=== PATIENT | female | born 1955 | race Caucasian/White ===

== ENCOUNTER 2019-09-12 22:36 | Emergency (ER) | payer BC, SELFPAY ==
--- NOTE | ~2019-09-12 | XR_ITS ---
EXAMINATION: XR hand RT min 3V INDICATION: Right hand pain and laceration TECHNIQUE: Three views of the right hand are obtained. COMPARISON: None available FINDINGS: There is no fracture, dislocation, or subluxation. There is mild soft tissue swelling of th e third and fourth fingers. The joint spaces are normal. IMPRESSION: 1. No acute osseous abnormality. Reviewed, dictated and finalized at location A.
--- NOTE | ~2019-09-12 | XR_ITS ---
EXAMINATION: XR hand LT min 3V INDICATION: Left hand pain and laceration TECHNIQUE: Three views of the left hand are obtained. COMPARISON: None available FINDINGS: There is swelling of the third and fourth fingers. There appear to be lacerations of the th ird finger. No fracture is identified. The joint spaces are normal. IMPRESSION: 1. No acute osseous abnormality. Reviewed, dictated and finalized at location A.
[2019-09-12 22:39] VITALS: BP 143/109; PULSE 97; RESP 18; TEMP 35.8; O2SAT 100
--- NOTE | 2019-09-12 23:00 | ED.FALL ---
HPI - Fall General Chief Complaint: Fall Stated Complaint: fall, hand lacs Time Seen by Provider: 09/12/19 23:00 Source: patient Mode of arrival: ambulatory Limitations: no limitations History of Present Illness HPI Narrative: A 63 y/o female presents to the ED after a fall. Pt states she had 2 beers this evening and was taking out the trash when she fell and scraped her fingers on the gravel. Pt's tetanus immunization is UTD. She reports smoking, but denies a HI, LOC, and drug use. Pt is not on a blood thinner. Place fall occurred: home Loss of consciousness: none Location of injury: other (fingers) Related Data Home Medications Medication Instructions Recorded Confirmed atorvastatin 20 mg tablet 20 mg PO DAILY 07/09/19 levothyroxine 75 mcg tablet 75 mcg PO DAILY 07/09/19 triamterene 37.5 1 tablet PO QAM 07/09/19 mg-hydrochlorothiazide 25 mg tablet Allergies Allergy/AdvReac Type Severity Reaction Status Date / Time propoxyphene Allergy Unknown Unknown Verified 09/12/19 22:59 Review of Systems Review of Systems: All systems reviewed & are unremarkable except as noted in HPI and below Constitutional: Comments: Reports: a fall Musculoskeletal: Comments: Reports: laceration to fingers Neurologic: Comments: Denies: HI, LOC PMFSH Past Medical History Medical History Breast cancer History of chemotherapy HLD (hyperlipidemia) Hx of radiation therapy Hypothyroid Surgical History Surgical History H/O left mastectomy Hx of removal of ovary Family History Family History Mother Patient's mother is Father Patient's father is Other Family history of hypercholesterolemia Family history of malignant neoplasm of breast Social History Social History (Updated 09/12/19 @ 23:15 by Carole Jefferson) Smoking packs per day: 0.5 Smoking cigarettes per day: 10.0 Smoking status: Current every day smoker Alcohol intake: current Substance use: never Gender identity (if verbalized by the patient): Female Comments PCP: Dr. Quijano Exam Narrative: Exam Narrative: GENERAL: Well-appearing, well-nourished, and in no acute distress. HEAD: Normocephalic, atraumatic. CHEST: Clear to auscultation. No respiratory distress. HEART: Regular rate and rhythm. Normal peripheral pulses. EXTREMITIES: Right hand with flap lacerations to digits #3 and 4. The fourth digit has a 4 cm laceration that is you sick shaped. I can see down to the bone/joint capsule. Patient maintains normal flexion extension with normal strength in the affected finger. The right third digit demonstrates a 2.5 cm laceration that goes down towards the joint capsule but it appears intact. Again flexion extension are preserved as is strength. Sensation sharp and soft is intact in the affected digits as well on the right side. The left third digit has a stellate 5 cm laceration that goes down to bone/joint capsule. All joints involved are the PIPs. The left hand has preserved flexion/extension/sharp and soft touch. Normal strength as well. No foreign body or particulate visualized in a bloodless plane in each digit. SKIN: Warm, dry, no rash. Scattered abrasions to the hands bilaterally as well as each finger. NEURO: No focal deficits. Alert and oriented x3. Course Course Emergency Course: Wound repaired. Patient had the wounds dressed with topical antibiotic. Will give hand surgery follow-up. AlumaFoam splints have been applied to keep the patient's fingers in extension while healing. Discussed return precautions and patient verbalized understanding. Vital Signs Vital signs: Vital Signs Temperature 96.4 F L 09/12/19 22:39 Pulse Rate 97 09/12/19 22:39 Respiratory Rate 18 09/12/19 22:39 Blood Pressure 143/109 H 09/12/19 22:39 Pulse Oximetr
[2019-09-13 02:26] VITALS: BP 141/98; PULSE 91; RESP 16; O2SAT 100
== END 2019-09-13 02:27 | disposition home or self-care (01) ==
PROVIDERS: Emergency Provider Emergency Medicine; PCP Family Medicine
DX: S61.212A Laceration without foreign body of right middle finger without damage to nail, initial encounter (principal); S61.214A Laceration without foreign body of right ring finger without damage to nail, initial encounter; E03.9 Hypothyroidism, unspecified; E78.5 Hyperlipidemia, unspecified; W01.0XXA Fall on same level from slipping, tripping and stumbling without subsequent striking against object, initial encounter
CPT/HCPCS: 12004; 73130; 99284

== ENCOUNTER 2019-09-14 14:38 | Emergency (ER) | payer BC, SELFPAY ==
[2019-09-14 14:40] VITALS: BP 141/81; PULSE 96; RESP 18; TEMP 36.3; O2SAT 100
--- NOTE | 2019-09-14 15:05 | ED.GENADULT ---
HPI - General Adult General Chief complaint: Wound/Laceration Stated complaint: needs a tetanus shot Time Seen by Provider: 09/14/19 14:40 Source: patient Mode of arrival: ambulatory Limitations: no limitations History of Present Illness HPI narrative: Patient is a 63-year-old female who presents to emergency department for evaluation of need for tetanus from specialist office who is evaluating her for wounds to the bilateral hands after falling and injuring them. Patient notes she needs tetanus has no other complaints Related Data Home Medications Medication Instructions Recorded Confirmed atorvastatin 20 mg tablet 20 mg PO DAILY 07/09/19 levothyroxine 75 mcg tablet 75 mcg PO DAILY 07/09/19 triamterene 37.5 1 tablet PO QAM 07/09/19 mg-hydrochlorothiazide 25 mg tablet Allergies Allergy/AdvReac Type Severity Reaction Status Date / Time propoxyphene Allergy Unknown Unknown Verified 09/14/19 11:00 Review of Systems Review of Systems: All systems reviewed & are unremarkable except as noted in HPI and below PMFSH Past Medical History Medical History Breast cancer History of chemotherapy HLD (hyperlipidemia) Hx of radiation therapy Hypothyroid Surgical History Surgical History H/O left mastectomy Hx of removal of ovary Social History Social History Smoking packs per day: 0.5 Smoking cigarettes per day: 10.0 Smoking status: Current every day smoker Alcohol intake: current Substance use: never Gender identity (if verbalized by the patient): Female Exam Narrative: Exam Narrative: GENERAL: Well-appearing, well-nourished, and in no acute distress. HEAD: Normocephalic, atraumatic. EYES: PERRLA and EOMI. ENT: Nares clear, no rhinorrhea or epistaxis. Mucous membranes moist. EXTREMITIES: Swelling to the bilateral hands noted SKIN: Warm, dry, no rash. NEURO: Alert and oriented x3. PSYCH: Normal mood and affect. Course Course Emergency Course: Patient in the room in no distress aware of case findings treatment plan and diagnosis agreeing to follow-up as directed Vital Signs Vital signs: Vital Signs Temperature 97.4 F L 09/14/19 14:40 Pulse Rate 96 09/14/19 14:40 Respiratory Rate 18 09/14/19 14:40 Blood Pressure 141/81 H 09/14/19 14:40 Pulse Oximetry 100 09/14/19 14:40 Temperature 97.4 F L 09/14/19 14:40 Pulse Rate 96 09/14/19 14:40 Respiratory Rate 18 09/14/19 14:40 Blood Pressure 141/81 H 09/14/19 14:40 Pulse Oximetry 100 09/14/19 14:40 Medical Decision Making MDM Narrative Medical decision making narrative: Patient was given tetanus and requesting to leave Vital Signs Vital Signs: Vital Signs Temperature 97.4 F L 09/14/19 14:40 Pulse Rate 96 09/14/19 14:40 Respiratory Rate 18 09/14/19 14:40 Blood Pressure 141/81 H 09/14/19 14:40 Pulse Oximetry 100 09/14/19 14:40 Temperature 97.4 F L 09/14/19 14:40 Pulse Rate 96 09/14/19 14:40 Respiratory Rate 18 09/14/19 14:40 Blood Pressure 141/81 H 09/14/19 14:40 Pulse Oximetry 100 09/14/19 14:40 Discharge Plan Discharge Clinical Impression: Laceration Patient Disposition: Home, Self-Care Condition: Stable Instructions: Antibiotic Form, Laceration (ED) Prescriptions: No Action atorvastatin 20 mg tablet 20 mg PO DAILY RF: 0 levothyroxine 75 mcg tablet 75 mcg PO DAILY RF: 0 triamterene-hydrochlorothiazid 37.5-25 mg tablet 1 tablet PO QAM RF: 0 sertraline 50 mg tablet 50 mg PO DAILY Qty: 30 RF: 1 alprazolam 0.5 mg tablet 0.25 mg PO Q4H PRN (Reason: anxiety) Qty: 90 RF: 2 Follow-up/Referrals: Tomy Quijano MD [Primary Care Provider] -
--- NOTE | 2019-09-14 15:34 | PC.NURSE ---
pt refuses tetanus shot. pt reports having it at pcp in 2015. pt wants to leave [facility] and refuses to wait for d/c instructions. provided notified
== END 2019-09-14 15:37 | disposition home or self-care (01) ==
PROVIDERS: Emergency Provider Emergency Medicine; PCP Family Medicine
DX: S61.412A Laceration without foreign body of left hand, initial encounter (principal); S61.411A Laceration without foreign body of right hand, initial encounter; Z85.3 Personal history of malignant neoplasm of breast; Z92.21 Personal history of antineoplastic chemotherapy; E78.5 Hyperlipidemia, unspecified; Z92.3 Personal history of irradiation; E03.9 Hypothyroidism, unspecified; Z90.12 Acquired absence of left breast and nipple; F17.210 Nicotine dependence, cigarettes, uncomplicated; W19.XXXA Unspecified fall, initial encounter
CPT/HCPCS: 99281

== ENCOUNTER 2019-11-22 13:55 | Outpatient (CLI) | payer BC, SELFPAY ==
--- NOTE | ~2019-11-22 | CT_ITS ---
EXAMINATION: CT chest abdomen pelvis w con DATE: 11/22/2019 17:22 CDT INDICATION: Breast cancer. TECHNIQUE: Computed tomography (CT) of the chest, abdomen, and pelvis was performed with 100 cc Omnip aque 350 intravenous contrast. The dose-length product was 705.18 mGy-cm. Automated exposure control and iterative reconstruction technique were employed. COMPARISON: None FINDINGS: CHEST CT: Heart size is normal. There is a deflated left implant in the breasts. Status post left breast mastec natali. There is irregular soft tissue within the right breast with high density mass measuring 2.4 cm, axial image 50. No definite mass was seen on prior mammogram dated 04/17/2019. No thoracic lymphaden opathy. There is peripheral scarring in the right upper lobe, likely from previous radiation therapy. Correlate clinically. There is left apical pleural thickening. No focal airspace consolidation. Ther e is a 2-3 mm right lower lobe nodule, image 88. No endobronchial lesions. ABDOMEN/PELVIS CT: There are small hypodensities of the liver, too small to characterize, although likely benign cysts o r hemangiomas. Gallbladder is present. The spleen, pancreas, adrenal glands and kidneys are unremarka ble. No abdominal or pelvic lymphadenopathy. Prominent periuterine veins are noted which can be assoc iated with pelvic congestion syndrome. No abnormal pelvic masses or fluid collections. There is moder ate lumbar spondylosis at L5-S1. No osteolytic or osteoblastic lesions are seen. Nonobstructive bowel gas pattern. No free air or free fluid. IMPRESSION: 1. Irregular shaped hyperdense 2.4 cm right breast mass, not definitely seen on previous mammogram. R ecommend follow-up diagnostic mammogram and ultrasound. Status post left mastectomy. 2: Pleural thickening/scarring peripherally in the right upper and lower lobe, likely from previous r adiation therapy. 3: Dilated periuterine veins, nonspecific, although can be associated with pelvic congestion syndrome . Reviewed, dictated and finalized at location A. IMPRESSION: 1. Irregular shaped hyperdense 2.4 cm right breast mass, not definitely seen on previous mammogram. Recommend follow-up diagnostic mammogram and ultrasound. S tatus post left mastectomy. 2: Pleural thickening/scarring peripherally in the right upper and lower lobe, likely from previous radiation therapy. 3: Dilated periuterine veins, nonspecific, although can be associated with pelv ic congestion syndrome.
[2019-11-22 14:25] LABS: Estimated Glomerular Filt Rate > 60
== END 2019-11-22 13:56 | disposition home or self-care (01) ==
PROVIDERS: PCP Family Medicine; Visit Provider Internal Medicine Medical Oncology
DX: C50.111 Malignant neoplasm of central portion of right female breast (principal); Z17.0 Estrogen receptor positive status [ER+]; R91.8 Other nonspecific abnormal finding of lung field
CPT/HCPCS: 36415; 71260; 74177; Q9967

== ENCOUNTER 2019-12-11 13:11 | Outpatient (CLI) | payer BC, SELFPAY ==
--- NOTE | ~2019-12-11 | MMUS_ITS ---
EXAMINATION: MM diagnostic narendra RT w thelma, US breast RT limited HISTORY: Right breast mass seen on CT scan, history of right breast cancer TECHNIQUE: Craniocaudal, mediolateral, and mediolateral oblique 3-D tomosynthesis images of the right breast were performed and synthetic 2-D images were generated. CAD analysis was submitted and interp reted. High resolution limited left breast ultrasound was performed. COMPARISON: 04/17/2019, 03/30/2018, 02/16/2017 BREAST PARENCHYMAL COMPOSITION: The breasts are heterogeneously dense, which may obscure small masses . FINDINGS: MAMMOGRAPHIC FINDINGS: Scattered benign-appearing calcifications are present. No discrete right breast mass is identified. T here is a 2.2 cm area of fat necrosis at the site of lumpectomy in the upper outer quadrant of the br east. No suspicious architectural distortion or calcification are seen. ULTRASOUND: There is a 2.1 x 1.5 cm oval, parallel, hypoechoic mass with slightly irregular margins, posterior sh adowing, and no internal vascularity at the 10:00 location 4 cm from the nipple. IMPRESSION: 1. Right breast findings most likely reflecting postoperative fat necrosis. 2. Recommend 6 month follow-up right diagnostic mammogram and ultrasound. BI-RADS category 3, probably benign findings. Reviewed, dictated and finalized at location A. IMPRESSION: 1. Right breast findings most likely reflecting postoperative fat necrosis. 2. Recommend 6 month follow-up right diagnostic mammogram and ultrasound. BI-RADS category 3, probably benign findings.
== END 2019-12-11 13:12 | disposition home or self-care (01) ==
PROVIDERS: PCP Family Medicine; Visit Provider Internal Medicine Medical Oncology
DX: C50.111 Malignant neoplasm of central portion of right female breast (principal); Z17.0 Estrogen receptor positive status [ER+]; R92.8 Other abnormal and inconclusive findings on diagnostic imaging of breast
CPT/HCPCS: 76642; 77061; 77065; G0279

== ENCOUNTER 2021-06-30 09:23 | Outpatient (CLI) | payer MEDICARE, SELFPAY ==
--- NOTE | 2021-06-30 09:30 | EST_ITS ---
Patient Info Name: Emeli Garrison Age: 65 years : 1955 Gender: Female Ht: 66 in Wt: 172 lbs BSA: 1.92 m2 Technical Quality: Fair Exam Date: 06/30/2021 9:39 AM Exam Location: [facility] Pulmonary Patient Status: Outpatient Admit Date: 06/30/2021 Staff Ordering Physician: Jim Quijano MD Dural Mechanic: Alanna Winchester RDCS Attending Provider: DR. FERNANDEZ Referring Physician: Samm DUMONT; Exercise Technologist: Sahara Broussard CT Exercise Physician: Ravi Fernandez DO Exam Type: CA stress echo Study Info Indications R07.89 - Other chest pain Treadmill exercise stress echocardiogram is performed. Summary 1. 1. Inconclusive submaximal Graeme exercise stress test for ischemic ST changes due to achieving only 79% MPHR for age group. 2. 2. Poor functional capacity, achieving 1 METs of workload due to severe unsteadiness that she lasted only 20 seconds on treadmill. 3. 3. Rapid HR response to exercise. 4. 4. Appropriate HR recovery at 1 minute post exercise. 5. 5. Negative stress echocardiogram for ischemia by wall motion analysis at the level achieved. 6. 6. Patient informed of the above results. Stress Echo Findings Left Ventricle Appropriate increase in LV endocardial thickening with systole. Appropriate augmentation of contractility with systole. No wall motion abnormality. Left Ventricle Normal LV systolic function, no wall motion abnormality. Protocol: Graeme Stress ECG Details Stage: REST Duration (min): 0 min : 52 sec Speed (mph): 0.0 Grade (%): 0 HR (bpm): 90 SBP (mmHg): 133 DBP (mmHg): 76 METS: --- Stage: REST Duration (min): 23 min : 7 sec Speed (mph): 0.0 Grade (%): 0 HR (bpm): 94 SBP (mmHg): 133 DBP (mmHg): 76 METS: --- Stage: STAGE 1 Duration (min): 1 min : 0 sec Speed (mph): 0.0 Grade (%): 0 HR (bpm): 122 SBP (mmHg): 133 DBP (mmHg): 76 METS: --- Stage: STAGE 1 Duration (min): 1 min : 31 sec Speed (mph): 0.0 Grade (%): 0 HR (bpm): 115 SBP (mmHg): 133 DBP (mmHg): 76 METS: --- Stage: RECOVERY Duration (min): 0 min : 28 sec Speed (mph): 0.0 Grade (%): 0 HR (bpm): 102 SBP (mmHg): 124 DBP (mmHg): 75 METS: --- Stage: RECOVERY Duration (min): 1 min : 28 sec Speed (mph): 0.0 Grade (%): 0 HR (bpm): 92 SBP (mmHg): 124 DBP (mmHg): 75 METS: --- Stage: RECOVERY Duration (min): 1 min : 52 sec Speed (mph): 0.0 Grade (%): 0 HR (bpm): 95 SBP (mmHg): 135 DBP (mmHg): 64 METS: --- Rest HR: 94 bpm Peak HR: 123 bpm Rest Sys BP: 133 mmHg Peak Sys BP: 135 mmHg Max Pred HR: 155 bpm % Max Pred HR: 79 % Target HR: 132 bpm Max RPP: 16,605 bpm*mmHg Diaz Score: -2 Termination Reason: Maximal effort/unable to continue Cardiac Symptoms: Unsteadiness, about to fall. SOB. Max ST Seg Deviation: 0.70 mm Total Time: 1 min : 31 sec Rest Alonso BP: 76 mmHg Peak Alonso BP: 64 mmHg Angina Score: None Total METS: 1.3 Resting ECG Sinus rhythm. Stress ECG No ST changes. Arrhythmias None. Report Signatures Stress
== END 2021-06-30 09:24 | disposition home or self-care (01) ==
PROVIDERS: PCP Family Medicine; Visit Provider Family Medicine
DX: R07.89 Other chest pain (principal)
CPT/HCPCS: 93351

== ENCOUNTER 2022-07-08 12:17 | Outpatient (CLI) | payer MEDICARE, SELFPAY ==
--- NOTE | ~2022-07-08 | CT_ITS ---
EXAMINATION: CT lung screening DATE: 07/08/2022 12:36 INDICATION: Tobacco abuse TECHNIQUE: Computed tomography (CT) of the chest was performed without intravenous contrast. Addition al 3D reconstructions utilizing coronal maximum intensity projection (MIP) were performed. Automated exposure control and iterative reconstruction technique were employed. The dose-length product was 10 0.51 mGy-cm. COMPARISON: 11/22/2019 FINDINGS: Mild biapical pleural-parenchymal scarring. Minimal emphysema. Stable appearance of peripheral radiat ion fibrosis along the anteromedial right upper lobe with change of prior partial right mastectomy wi th numerous surgical clips. There are a couple unchanged 4 mm and 2 mm nodules in the right upper lob e along side the cephalad aspect of the region of fibrosis and unchanged 2 mm left upper lobe nodule. There is also a 2 mm calcified left lower lobe nodule consistent with old granulomatous disease. No new or enlarging pulmonary nodules, pulmonary edema, pneumonia or pleural effusion. Heart size is nor mal. Small amount of atherosclerotic coronary artery calcific location. No pericardial effusion. Thor acic aorta is normal in caliber. There is also been a contralateral left mastectomy with capsular malu cification along a ruptured and collapsed left breast implant. There is a reservoir with catheter ext ending to the implant. Again seen are couple small low-attenuation hepatic cysts. 23 degrees upper th oracic levoscoliosis with mild to moderate spondylosis. IMPRESSION: 1. Lung-RADS category 2: Benign appearance or behavior. Continue annual screening with noncontrast lo w-dose chest CT in 12 months. Reviewed, dictated and finalized at location A. DULING COORDINATOR IMPRESSION: 1. Lung-RADS category 2: Benign appearance or behavior. Continue annual screeni ng with noncontrast low-dose chest CT in 12 months.
--- NOTE | ~2022-07-08 | CT_ITS ---
EXAMINATION: CT brain wo con DATE: 07/08/2022 12:36 INDICATION: Lightheadedness. TECHNIQUE: Computed tomography (CT) of the head was performed without intravenous contrast. The mA wa s adjusted according to patient size. Iterative reconstruction technique was employed. The dose-lengt h product was 605.33 mGy-cm. COMPARISON: None FINDINGS: There are old infarcts in the bilateral basal ganglia and anterior limbs of the internal ca psules. There is no intracranial hemorrhage, acute infarction, or abnormal intracranial mass lesion. The ventricles are normal in size. There is mucosal thickening in the paranasal sinuses. The orbits a re normal. There is a small right mastoid effusion. IMPRESSION: 1. 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 Reviewed, dictated and finalized at location A. PAPER STUFFER
== END 2022-07-08 12:18 | disposition home or self-care (01) ==
LOC: ANHIMG 12:21
PROVIDERS: PCP Emergency Medicine; Visit Provider Emergency Medicine
DX: R42 Dizziness and giddiness (principal); F17.210 Nicotine dependence, cigarettes, uncomplicated; Z86.73 Personal history of transient ischemic attack (TIA), and cerebral infarction without residual deficits; Z12.2 Encounter for screening for malignant neoplasm of respiratory organs
CPT/HCPCS: 70450; 71271

== ENCOUNTER 2022-07-14 08:31 | Outpatient (CLI) | payer MEDICARE, SELFPAY ==
--- NOTE | ~2022-07-14 | NM_ITS ---
NUCLEAR MEDICINE CARDIAC GATED STRESS TEST: HISTORY: Dizziness. TECHNIQUE: Rest images were obtained following intravenous administration of 10.6 mCi Tc99m Tetrofosm in. The patient was infused intravenously with Lexiscan (regadenoson). Then, 34.0 mCi Tc99m Tetrofosm in was administered intravenously, and stress images were obtained. Data was reconstructed into short axis and horizontal and vertical long axis SPECT images. Gated SPECT images were also obtained. FINDINGS: There are no perfusion defects seen on the stress or rest SPECT images. There is normal left ventricular wall motion. Left ventricular ejection fraction is 74%. IMPRESSION: No evidence for ischemia. Normal ejection fraction of 74%. Reviewed, dictated and finalized at location . CARDIOVASCULAR
--- NOTE | 2022-07-14 08:42 | EST_ITS ---
Patient Info Name: Emeli Garrison Age: 66 years : 1955 Gender: Female Ht: 66 in Wt: 170 lbs BSA: 1.91 m2 HR: 66 bpm BP: 141 / 81 mmHg Heart Rhythm: Sinus Rhythm Exam Date: 07/14/2022 9:41 AM Exam Location: [facility] Stress Patient Status: Outpatient Admit Date: 07/14/2022 Staff Ordering Physician: Kalyan Carlin MD Attending Provider: Kalyan Carlin MD Exercise Technologist: Sahara Broussard CT Exercise Physician: Ravi Castaneda DO Exam Type: CA stress carlito w NM Study Info Indications R42 - LIGHTHEADED A regadenoson stress test was performed. Summary 1. 1. Negative lexiscan stress test for ischemic ST changes by ECG criteria. 2. 2. Baseline hypertension. 3. 3. Nuclear scan to follow and will be reported separtately. Please correlate with it. 4. 4. Patient informed of the above results. Protocol: Lexiscan Stress ECG Details Stage: REST Duration (min): 1 min : 56 sec HR (bpm): 86 SBP (mmHg): 141 DBP (mmHg): 81 Stage: REST Duration (min): 5 min : 23 sec HR (bpm): 98 SBP (mmHg): 141 DBP (mmHg): 81 Stage: STAGE 1 Duration (min): 0 min : 59 sec HR (bpm): 87 SBP (mmHg): 137 DBP (mmHg): 84 Stage: RECOVERY Duration (min): 1 min : 0 sec HR (bpm): 118 SBP (mmHg): 137 DBP (mmHg): 84 Stage: RECOVERY Duration (min): 2 min : 0 sec HR (bpm): 114 SBP (mmHg): 137 DBP (mmHg): 84 Stage: RECOVERY Duration (min): 3 min : 0 sec HR (bpm): 104 SBP (mmHg): 143 DBP (mmHg): 80 Stage: RECOVERY Duration (min): 3 min : 0 sec HR (bpm): 104 SBP (mmHg): 143 DBP (mmHg): 80 Rest HR: 98 bpm Peak HR: 121 bpm Rest Sys BP: 141 mmHg Peak Sys BP: 143 mmHg Max Pred HR: 154 bpm % Max Pred HR: 79 % Target HR: 131 bpm Max RPP: 17,303 bpm*mmHg Termination Reason: Completed protocol Cardiac Symptoms: None Total Time: 1 min : 0 sec Rest Alonso BP: 81 mmHg Peak Alonso BP: 80 mmHg Total Dose: 0.4 mg Resting ECG Sinus rhythm. Stress ECG No ST changes. Arrhythmias None. Report Signatures
== END 2022-07-14 08:32 | disposition home or self-care (01) ==
PROVIDERS: PCP Emergency Medicine; Visit Provider Emergency Medicine
DX: R07.9 Chest pain, unspecified (principal); I10 Essential (primary) hypertension
CPT/HCPCS: 78452; 93017; A9502; J2785

== ENCOUNTER 2022-12-13 10:21 | Outpatient (CLI) | payer MEDICARE, SELFPAY ==
[2022-12-13 14:20] LABS: Basophils Absolute Auto 0.1 K/mm3 (0.0-0.1); Basophils Percent Auto 0.9 % (0.2-1.2); Eosinophils Absolute Auto 0.2 K/mm3 (0-0.3); Eosinophils Percent Auto 2.6 % (0-4.4); Hematocrit 44.3 % (37.0-47.0); Hemoglobin 14.6 g/dL (12.0-15.0); Immature Granulocyte Absolute 0.02 K/mm3 (0.00-0.031); Immature Granulocyte Percent A 0.2 % (0-0.5); Lymphocytes Absolute Auto 2.69 K/mm3 (0.9-3.2); Lymphocytes Percent Auto 31.5 % (18.3-44.2); Mean Corpuscular Hemoglobin 31.8 pg (26-34); Mean Corpuscular Volume 96.5 fl (80-100); Mean Platelet Volume 9.5 fl (7.4-10.4); Monocytes Absolute Auto 0.7 K/mm3 (0.1-0.6); Monocytes Percent Auto 7.8 % (2.6-8.5); Neutrophils Absolute Auto 4.9 K/mm3 (1.3-6.7); Platelet Count Result 318 k/mm3 (150-375); Red Blood Count 4.59 M/mm3 (4.2-5.4); Red Cell Distribution Width 13.3 % (11.5-14.5); White Blood Count 8.6 K/mm3 (4.5-10.0)
[2022-12-13 16:47] LABS: Thyroid Stimulating Hormone 0.889 uIU/mL (0.465-4.680)
== END 2022-12-13 10:22 | disposition home or self-care (01) ==
LOC: ANHGOSHLAB 10:23
PROVIDERS: PCP Emergency Medicine; Visit Provider Emergency Medicine
DX: R73.02 Impaired glucose tolerance (oral) (principal); E03.9 Hypothyroidism, unspecified
CPT/HCPCS: 36415; 84443; 85025

== ENCOUNTER → 2023-01-06 10:49 | Outpatient (CLI) | payer MEDICARE, SELFPAY ==
--- NOTE | ~2023-01-06 | DEXA_ITS ---
Bone Density Report Name: ZULEYMA LENZ Age: 67 Sex: Female Ethnicity: White Date of : 1955 Indication: postmenopausal; screening for osteoporosis; height loss; cancer; Referring Provider: GILLIAN, CARLEY Emery Study: Bone densitometry was performed. Exam Date: January 06, 2023 Accession number: [id number] Bone Density: Region BMD T-score Z-score Classification AP Spine (L1-L4) 1.012 -0.3 1.6 Normal Femoral Neck (Left) 0.792 -0.5 1.1 Normal Total Hip (Left) 0.897 -0.4 1.0 Normal Femoral Neck (Right) 0.787 -0.6 1.1 Normal Total Hip (Right) 0.850 -0.8 0.6 Normal Total Hip Mean 0.874 -0.6 0.8 Normal World Health Organization criteria for BMD impression classify patients as: Normal (T-score at or above -1.0), Osteopenia (T-score between -1.0 and -2.5), or Osteoporosis (T-score at or below -2.5). 10-year Fracture Risk: FRAX not reported because: All T-scores for Spine Total, Hip Total, Femoral Neck at or above -1.0 Clinical Information Provided by Patient: Smokes Has 3 or more alcoholic drinks per day Has used the following medications: Vitamin D Has the following medical conditions: Cancer Patient maximum height was 66 Menopause Age: 35 No regular weight bearing exercise Does not regularly consume dairy products Drinks caffeinated beverages Onset of menses at age 12 Number of children 4 Impression: The patient has normal bone mass. The patient has risk factors, including: smoking, excessive alcohol use. Discussion: BONE DENSITY IS ABOVE THE MINIMUM DESIRABLE LEVEL AT ALL SKELETAL SITES TESTED. This patient?s bone mineral density is above the minimum desirable level (T-score -1.0 or better) at all sites measured. The patient should follow a healthful lifestyle (good nutrition with adequate calcium and vitamin D, and appropriate weight-bearing exercise). Follow-Up: Consider repeating this study in 5 years or sooner if there is some new clinical indication. Reported by: COLIN on 01/06/2023 11:14:00 AM. Reviewed, dictated and finalized at location AMayela MIRANDA
--- NOTE | ~2023-01-06 | MM_ITS ---
EXAMINATION: MM screening narendra RT w thelma HISTORY: Screening mammogram TECHNIQUE: Craniocaudal and mediolateral oblique 3-D tomosynthesis images were obtained and synthetic 2-D images were generated. CAD analysis was submitted and interpreted. COMPARISON: 12/11/2019 diagnostic right mammogram and limited right breast ultrasound examination 04/17/2019, 03/2018, 02/16/2017 right screening mammogram examinations BREAST PARENCHYMAL COMPOSITION: The breasts are heterogeneously dense, which may obscure small masses . FINDINGS: There is chronic scarring and retraction in the mid to upper outer right breast. There are extensive secretory calcifications and occasional arterial calcifications and calcified microhematoma s. No interval suspicious mass or new architectural distortion or new skin thickening or retraction is i dentified or other significant change other than the increased number and prominence of the benign ca lcifications. IMPRESSION: Status post right partial mastectomy for breast cancer. No mammographic evidence of malignancy. BI-RADS category 2: Benign Reviewed, dictated and finalized at location A. IMPRESSION: Status post right partial mastectomy for breast cancer. No mammographic evidenc e of malignancy. BI-RADS category 2: Benign
== END ==
PROVIDERS: PCP Emergency Medicine; Visit Provider Nurse Practitioner Family
DX: Z12.31 Encounter for screening mammogram for malignant neoplasm of breast (principal); M81.0 Age-related osteoporosis without current pathological fracture
CPT/HCPCS: 77063; 77067; 77080

== ENCOUNTER 2023-04-06 07:18 | Outpatient (RCR) | payer MEDICARE, SELFPAY ==
[2023-03-01 09:30] VITALS: BMI 25.9
== END 2023-05-16 08:59 | disposition home or self-care (01) ==
LOC: ANHWOC 07:18
PROVIDERS: PCP Emergency Medicine; Visit Provider Emergency Medicine
DX: T81.31XA Disruption of external operation (surgical) wound, not elsewhere classified, initial encounter (principal)
CPT/HCPCS: 99212; 99213; A9270; G0463

== ENCOUNTER 2023-09-23 10:20 | Outpatient (CLI) | payer MEDICARE, SELFPAY ==
[2023-09-23 13:32] LABS: Basophils Absolute Auto 0.1 K/mm3 (0.0-0.1); Basophils Percent Auto 0.8 % (0.2-1.2); Eosinophils Absolute Auto 0.1 K/mm3 (0-0.3); Eosinophils Percent Auto 1.4 % (0-4.4); Hematocrit 43.8 % (37.0-47.0); Hemoglobin 14.4 g/dL (12.0-15.0); Immature Granulocyte Absolute 0.01 K/mm3 (0.00-0.031); Immature Granulocyte Percent A 0.1 % (0-0.5); Lymphocytes Absolute Auto 2.69 K/mm3 (0.9-3.2); Lymphocytes Percent Auto 31.2 % (18.3-44.2); Mean Corpuscular HGB Conc 32.9 g/dl (32-36); Mean Corpuscular Hemoglobin 31.7 pg (26-34); Mean Corpuscular Volume 96.5 fl (80-100); Mean Platelet Volume 9.8 fl (7.4-10.4); Monocytes Absolute Auto 0.6 K/mm3 (0.1-0.6); Monocytes Percent Auto 7.4 % (2.6-8.5); Neutrophils Absolute Auto 5.1 K/mm3 (1.3-6.7); Neutrophils Percent Auto 59.1 % (45.5-73.1); Platelet Count Result 331 k/mm3 (150-375); Red Blood Count 4.54 M/mm3 (4.2-5.4); Red Cell Distribution Width 13.2 % (11.5-14.5); White Blood Count 8.6 K/mm3 (4.5-10.0)
[2023-09-23 13:55] LABS: Alanine Aminotransferase 21 U/L (6-35); Albumin Level 4.3 g/dL (3.5-5.1); Alkaline Phosphatase 76 U/L (38-126); Anion Gap 6 mmol/L (4-12); Aspartate Amino Transferase 56 U/L (14-36); Bilirubin,Total 0.7 mg/dL (0.2-1.3); Blood Urea Nitrogen 9 mg/dL (7-17); Calcium 9.6 mg/dL (8.4-10.2); Carbon Dioxide 29 mmol/L (22-30); Chloride 105 mmol/L (98-107); Cholesterol 176 mg/dL (0-200); Estimated Glomerular Filt Rate > 60; Glucose 107 mg/dL (65-110); HDL Direct 91 mg/dL; Potassium 4.1 mmol/L (3.4-5.0); Sodium 140 mmol/L (137-145); Triglycerides 62 mg/dL (<150)
[2023-09-23 14:09] LABS: LDL Cholesterol Direct 77 mg/dL
[2023-09-23 14:12] LABS: Free T4 Free Thyroxine 1.34 ng/mL (0.78-2.19)
[2023-09-23 14:39] LABS: Hemoglobin A1C 5.7 % (<5.7)
[2023-09-29 18:32] LABS: Anti Nuclear Antibody Titer 1:40 (Negative)
== END 2023-09-23 10:21 | disposition home or self-care (01) ==
LOC: ANHGOSHLAB 10:22
PROVIDERS: PCP Emergency Medicine; Visit Provider Emergency Medicine
DX: T14.8XXD Other injury of unspecified body region, subsequent encounter (principal); E78.2 Mixed hyperlipidemia; E03.9 Hypothyroidism, unspecified; R73.03 Prediabetes; L29.9 Pruritus, unspecified
CPT/HCPCS: 36415; 80053; 80061; 83036; 84439; 84443; 84480; 85025; 86038; 86039